=== PATIENT | male | born 1980 | race Caucasian/White ===

== ENCOUNTER 2021-06-04 18:24 | Emergency (ER) | payer MEDICAID, SELFPAY ==
[2021-06-04 18:25] VITALS: BP 139/94; PULSE 80; RESP 16; TEMP 36.3; O2SAT 99; BMI 26.4
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
[2021-06-04 18:40] VITALS: BMI 26.4
== END 2021-06-04 20:25 | disposition home or self-care (01) ==
PROVIDERS: Emergency Provider Emergency Medicine; PCP Internal Medicine; Visit Provider Emergency Medicine
DX: S06.0X0A Concussion without loss of consciousness, initial encounter (principal); V53.5XXA Driver of pick-up truck or van injured in collision with car, pick-up truck or van in traffic accident, initial encounter; Y93.89 Activity, other specified; F17.290 Nicotine dependence, other tobacco product, uncomplicated
CPT/HCPCS: 70450; 99282

== ENCOUNTER 2021-06-06 18:19 | Emergency (ER) | payer MEDICAID, SELFPAY ==
[2021-06-06 18:20] VITALS: BP 123/80; PULSE 96; RESP 16; TEMP 36; O2SAT 97; BMI 26.4
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
[2021-06-06 19:55] VITALS: RESP 18
== END 2021-06-06 19:56 | disposition home or self-care (01) ==
PROVIDERS: Emergency Provider Emergency Medicine; PCP Internal Medicine; Visit Provider Emergency Medicine
DX: S06.0X0A Concussion without loss of consciousness, initial encounter (principal); V89.2XXA Person injured in unspecified motor-vehicle accident, traffic, initial encounter; F17.290 Nicotine dependence, other tobacco product, uncomplicated
CPT/HCPCS: 99282